=== PATIENT | female | born 1980 | race African-American/Black ===

== ENCOUNTER 2021-10-30 05:56 | Inpatient (IN) ==
[~2021-10-30 05:56] MED LIST: LACTATED RINGERS 1,000 ML IV SCH
[2021-10-30] MEDS ORDERED: GABAPENTIN 400 MG CAPSULE PO ONE (07:23)
[2021-10-30] MEDS ORDERED: ACETAMINOPHEN 500 MG TABLET PO ONE (07:23)
[2021-10-30] MEDS ORDERED: DIAZEPAM 5 MG TABLET PO ONE (07:23)
[2021-10-30] MEDS ORDERED: FAMOTIDINE 20 MG TABLET PO ONE (07:23)
[2021-10-30] MEDS ORDERED: TISSUE ADHESIVE 1 EACH APPLICATOR TOP ONE ×2 (09:23→12:59)
[2021-10-30] MEDS ORDERED: BUPIVACAINE MPF 0.25% 10 ML VIAL ONE (09:23)
[2021-10-30] MEDS ORDERED: LIDOCAINE 1%/EPI INJ 20 ML VIAL ONE (09:23)
[2021-10-30] MEDS ORDERED: MIDAZOLAM 2 MG/2 ML VIAL ONE (09:27)
[2021-10-30] MEDS ORDERED: LIDOCAINE 2% 5 ML VIAL ONE (09:27)
[2021-10-30] MEDS ORDERED: ONDANSETRON 4 MG/2 ML VIAL ONE (09:27)
[2021-10-30] MEDS ORDERED: fentaNYL 100 MCG/2 ML VIAL ONE ×2 (09:27→11:27)
[2021-10-30] MEDS ORDERED: propofoL 200 MG/20 ML VIAL IV ONE ×2 (09:27→11:29)
[2021-10-30] MEDS ORDERED: ROCURONIUM 50 MG/5 ML VIAL IV ONE (09:27)
[2021-10-30] MEDS ORDERED: SEVOFLURANE 1 UNIT/15 MINUTE INH ONE ×2 (09:27→11:03)
[2021-10-30] MEDS ORDERED: DEXAMETHASONE 4 MG/1 ML VIAL ONE (09:42)
[2021-10-30] MEDS ORDERED: LIDOCAINE 1% 5 ML VIAL ONE (09:43)
[2021-10-30] MEDS ORDERED: ROPIVACAINE 0.5% 30 ML VIAL ONE (09:43)
[2021-10-30] MEDS ORDERED: PHENYLEPHRINE DRIP 20 MG/250 ML PREMIX IV ONE (10:29)
[2021-10-30] MEDS ORDERED: GLYCOPYRROLATE 0.4 MG/2 ML VIAL ONE (10:33)
[2021-10-30] MEDS ORDERED: SUCCINYLCHOLINE 200 MG/10 ML VIAL ONE ×2 (11:03)
[2021-10-30] MEDS ORDERED: LACTATED RINGERS 1,000 ML IV ONE (11:31)
[2021-10-30] MEDS ORDERED: ACETAMINOPHEN 325 MG TABLET PO PRN (13:22)
[2021-10-30] MEDS ORDERED: ONDANSETRON 4 MG/2 ML VIAL IV PRN (13:33)
[2021-10-30] MEDS ORDERED: PROMETHAZINE INJ 25 MG in SODIUM CHLORIDE 0.9% 50 ML IV PRN (13:33)
[2021-10-30] MEDS ORDERED: HYDROmorphone 1 MG/1 ML SYRINGE IV PRN (13:33)
[2021-10-30] MEDS ORDERED: diphenhydrAMINE 50 MG/1 ML VIAL IV PRN (13:33)
[2021-10-30] MEDS: MEPERIDINE 25 MG/1 ML VIAL IV PRN ×2 (13:45→14:15)
[2021-10-30] MEDS ORDERED: PROMETHAZINE 25 MG/1 ML VIAL ONE (14:15)
[2021-10-30] MEDS: HYDROmorphone 1 MG/1 ML SYRINGE IV PRN ×2 (16:06→20:49)
[2021-10-30] MEDS: ONDANSETRON 4 MG/2 ML VIAL IV PRN (20:43)
[2021-10-31] MEDS: HYDROmorphone 1 MG/1 ML SYRINGE IV PRN (08:40)
[2021-10-31] MEDS: ONDANSETRON 4 MG/2 ML VIAL IV PRN (08:41)
[2021-10-31] MEDS: risperiDONE 1 MG TABLET PO SCH (20:13)
[2021-10-31] MEDS: BENZTROPINE 0.5 MG TABLET PO SCH (20:13)
[2021-11-01] MEDS: risperiDONE 1 MG TABLET PO SCH (08:32)
[2021-11-01] MEDS: BENZTROPINE 0.5 MG TABLET PO SCH (08:32)
[2021-11-01 11:28] VITALS: BP 86/43
== END 2021-11-01 13:55 | disposition home health service (06) | DRG 580 ==
LOC: N.OR 05:56 → N.SDSINP 06:01 → EDSTATUS 14:15 → N.3E 14:43
PROVIDERS: ADMIT Student in an Organized Health Care Education/Training Program; ATTEND Student in an Organized Health Care Education/Training Program

== ENCOUNTER 2021-11-20 05:47 | Observation (INO) ==
[2021-11-20] MEDS ORDERED: GABAPENTIN 400 MG CAPSULE PO ONE (06:36)
[2021-11-20] MEDS ORDERED: ACETAMINOPHEN 500 MG TABLET PO ONE (06:36)
[2021-11-20] MEDS ORDERED: FAMOTIDINE 20 MG TABLET PO ONE (06:36)
[2021-11-20] MEDS ORDERED: DIAZEPAM 5 MG TABLET PO ONE (06:36)
[2021-11-20] MEDS ORDERED: SCOPOLAMINE 1.5 MG PATCH TRANSDERM ONE (06:47)
[2021-11-20] MEDS ORDERED: MIDAZOLAM 2 MG/2 ML VIAL ONE (10:07)
[2021-11-20] MEDS ORDERED: fentaNYL 100 MCG/2 ML VIAL ONE (10:07)
[2021-11-20] MEDS ORDERED: BUPIVACAINE MPF 0.5% 30 ML VIAL ONE (10:09)
[2021-11-20] MEDS ORDERED: LIDOCAINE 1% 5 ML VIAL ONE (10:09)
[2021-11-20] MEDS ORDERED: DEXAMETHASONE 4 MG/1 ML VIAL ONE ×2 (10:09→12:13)
[2021-11-20] MEDS ORDERED: SUGAMMADEX 200 MG/2 ML VIAL IV ONE (11:43)
[2021-11-20] MEDS ORDERED: SODIUM CHLORIDE 0.9% 1,000 ML IV ONE ×2 (12:13→12:51)
[2021-11-20] MEDS ORDERED: SEVOFLURANE 1 UNIT/15 MINUTE INH ONE (12:13)
[2021-11-20] MEDS ORDERED: ONDANSETRON 4 MG/2 ML VIAL ONE (12:13)
[2021-11-20] MEDS ORDERED: LIDOCAINE 2% 5 ML VIAL ONE (12:13)
[2021-11-20] MEDS ORDERED: PHENYLEPHRINE 1 MG/10 ML SYRINGE IV ONE (12:13)
[2021-11-20] MEDS ORDERED: ROCURONIUM 50 MG/5 ML VIAL IV ONE (12:13)
[2021-11-20] MEDS ORDERED: propofoL 200 MG/20 ML VIAL IV ONE (12:13)
[2021-11-20] MEDS ORDERED: SUCCINYLCHOLINE 200 MG/10 ML VIAL ONE (12:13)
[2021-11-20] MEDS ORDERED: GLYCOPYRROLATE 0.4 MG/2 ML VIAL ONE (12:14)
[2021-11-20] MEDS ORDERED: TISSUE ADHESIVE 1 EACH APPLICATOR TOP ONE (12:47)
[2021-11-20] MEDS ORDERED: ACETAMINOPHEN 325 MG TABLET PO PRN (13:06)
[2021-11-20] MEDS ORDERED: HYDROmorphone 1 MG/1 ML SYRINGE IV PRN ×2 (13:06→13:37)
[2021-11-20] MEDS ORDERED: ONDANSETRON 4 MG/2 ML VIAL IV PRN (13:06)
[2021-11-20] MEDS ORDERED: ceFAZolin 1,000 MG VIAL ONE (13:20)
[2021-11-20] MEDS: LACTATED RINGERS 1,000 ML IV SCH (16:17)
[2021-11-21 04:07] LABS: Basophils % 0.1 % (0.0-0.8); Hemoglobin 10.4 GM/DL (12.0-16.0); Immature Granulocytes % 0.6 %; Immature Granulocytes Absolute 0.08 #; Lymphocytes # 1.3 10*3/uL (1.4-4.0); Lymphocytes % 10.4 % (21.3-54.2); Mean Corpuscular HGB Conc 31.5 GM/DL (32-36); Mean Corpuscular Volume 90.4 FL (87-102); Mean Platelet Volume 8.8 FL (9.6-12.0); Monocytes # 1.2 10*3/uL (0.11-0.8); Monocytes % 9.4 % (1.7-12.7); Neutrophils % 79.5 % (38.7-73.9); Platelet Count 280 T/CUMM (130-400); Red Blood Count 3.65 MC/CUMM (3.8-5.5); Red Cell Distribution Width 13.4 % (9.3-17.3); White Blood Count 12.5 T/CUMM (4-12)
[2021-11-21 04:26] LABS: Calcium 8.5 MG/DL (8.5-10.1); Osmolality,Calculated 280.1 MOS/KG (273-304); Potassium 4.5 MMOL/L (3.5-5.1)
[2021-11-21] MEDS: PANTOPRAZOLE 40 MG TABLET PO SCH (08:37)
[2021-11-21] MEDS ORDERED: DOCUSATE SODIUM 100 MG CAPSULE PO PRN (09:52)
[2021-11-21] MEDS ORDERED: MAGNESIUM HYDROXIDE SUSP 30 ML UDCUP PO PRN (09:53)
[2021-11-21] MEDS: BENZTROPINE 0.5 MG TABLET PO SCH (20:37)
[2021-11-21] MEDS ORDERED: risperiDONE 1 MG TABLET PO SCH (21:00)
[2021-11-21] MEDS: LACTATED RINGERS 1,000 ML IV SCH (22:30)
[2021-11-22] MEDS ORDERED: risperiDONE 1 MG TABLET PO SCH (09:00)
[2021-11-22] MEDS: BENZTROPINE 0.5 MG TABLET PO SCH (09:43)
[2021-11-22] MEDS: PANTOPRAZOLE 40 MG TABLET PO SCH (09:44)
[2021-11-22 11:50] VITALS: BP 113/64
== END 2021-11-22 14:45 | disposition home health service (06) ==
LOC: N.3E 05:47 → N.OR 05:47 → N.SDSINP 05:49 → N.3E 14:32
PROVIDERS: ADMIT Student in an Organized Health Care Education/Training Program; ATTEND Student in an Organized Health Care Education/Training Program